=== PATIENT | female | born 1995 | race African-American/Black ===

== ENCOUNTER 2019-04-29 16:33 | Inpatient (IN) | payer MEDICAID ==
[~2019-04-29] VITALS: Ht 182.9 cm; Wt 76.2 kg
[2019-04-29] MEDS ORDERED: TRIL8 PO (19:26)
[2019-04-29] MEDS ORDERED: BENZ1TAB10 PO (19:26)
[2019-04-29] MEDS ORDERED: OLAN5TAB2 PO (19:26)
[2019-04-29] MEDS ORDERED: HALOPERIDOL 5 MG TABLET PO PRN (19:45)
[2019-04-29] MEDS ORDERED: ZOLPIDEM TARTRATE 10 MG TABLET PO PRN (19:45)
[2019-04-29] MEDS ORDERED: LORazepam 2 MG TABLET PO PRN (19:45)
[2019-04-29] MEDS ORDERED: INFLUENZA VIRUS VACCINE QVS 2019-20 (3YR+)/PF 60 MCG/0.5 ML SYRINGE IM ONE (20:45)
[2019-04-29 22:38] VITALS: BP 105/61
[2019-04-30 00:08] VITALS: BP 109/62
[2019-04-30] MEDS ORDERED: BENZOCAINE/MENTHOL LOZENGE MM PRN (07:00)
[2019-04-30] MEDS ORDERED: IBUPROFEN 600 MG TABLET PO PRN (07:00)
[2019-04-30] MEDS ORDERED: BACITRACIN 28.4 GM OINTMENT TP PRN (07:00)
[2019-04-30] MEDS ORDERED: PETROLATUM,WHITE 28 GM JELLY TP PRN (07:00)
[2019-04-30] MEDS ORDERED: CloNIDine HCL 0.1 MG TABLET PO PRN (07:00)
[2019-04-30] MEDS ORDERED: DOCUSATE SODIUM 100 MG CAPSULE PO PRN (07:00)
[2019-04-30] MEDS ORDERED: MAG HYDROX/AL HYDROX/SIMETH ES 30 ML SUSPENSION UDCUP PO PRN (07:00)
[2019-04-30] MEDS ORDERED: ALBUTEROL SULFATE HFA 90 MCG/PUFF 8 GM INHALER IH PRN (07:00)
[2019-04-30] MEDS ORDERED: LOPERAMIDE HCL 2 MG CAPSULE PO PRN (07:00)
[2019-04-30] MEDS ORDERED: OMEPRAZOLE 20 MG CAPSULE PO PRN (07:00)
[2019-04-30] MEDS ORDERED: MAGNESIUM HYDROXIDE SUSPENSION 30 ML UDCUP PO PRN (07:00)
[2019-04-30] MEDS ORDERED: ONDANSETRON HCL 4 MG TABLET PO PRN (07:00)
[2019-04-30] MEDS ORDERED: ACETAMINOPHEN 325 MG TABLET PO PRN (07:00)
[2019-04-30 08:16] VITALS: BP 100/61
[2019-04-30 08:23] LABS: BASOPHILS % (AUTO) 0.4 % (0.0-2.0); EOSINOPHILS % (AUTO) 2.7 % (1.0-6.0); HEMATOCRIT 33.1 % (36-46); HEMOGLOBIN 11.3 g/dL (12.0-16.0); LYMPHOCYTES # (AUTO) 1.3 K/uL (1.0-4.8); LYMPHOCYTES % (AUTO) 52.7 % (22.0-44.0); MEAN CORPUSCULAR HEMOGLOBIN 30.4 pg (26.0-34.0); MEAN CORPUSCULAR HGB CONC 34.2 G/dL (31.0-37.0); MEAN CORPUSCULAR VOLUME 89 fL (80-100); MONOCYTES # (AUTO) 0.2 K/uL (0.1-1.0); MONOCYTES % (AUTO) 7.6 % (2.0-9.0); NEUTROPHILS # (AUTO) 0.9 K/uL (1.8-7.7); NEUTROPHILS % (AUTO) 36.6 % (40.0-70.0); PLATELET COUNT (AUTO) 200 K/uL (150-450); RED BLOOD CELL COUNT(AUTO) 3.71 MIL/uL (4.00-5.20); RED CELL DISTRIBUTION WIDTH 14.1 % (11.5-14.5)
[2019-04-30 08:43] LABS: ALANINE AMINOTRANSFERASE 19 U/L (12-78); ALBUMIN 3.3 g/dL (3.4-5.0); ALKALINE PHOSPHATASE 77 U/L (46-116); ANION GAP 6 mmol/L (8-16); ASPARTATE AMINOTRANSFERASE 13 U/L (15-37); BILIRUBIN,TOTAL 0.1 mg/dL (0.1-1.0); CALCIUM, TOTAL 8.5 mg/dL (8.8-10.5); CARBON DIOXIDE 27 mmol/L (22-29); CHLORIDE 107 mmol/L (98-107); CHOL/HDL RATIO 2.9 (3.9-5.7); CHOLESTEROL 144 mg/dL (131-200); CREATININE 1.04 mg/dL (0.60-1.30); FREE T4 (FREE THYROXINE) 0.77 ng/dL (0.76-1.46); GLOMERULAR FILTR. RATE CALC > 60 mL/min (>60); GLUCOSE,RANDOM 78 mg/dL (70-110); HCG,QUANTITATIVE < 1 mIU/mL (0-6); HDL CHOLESTEROL 49 mg/dL (40-60); LDL CHOL (CALC.) 84 mg/dL (0-130); POTASSIUM 4.1 mmol/L (3.5-5.1); SODIUM SERUM 140 mmol/L (136-145); THYROID STIMULATING HORMONE 0.61 uIU/mL (0.36-3.74); TOTAL PROTEIN, SERUM 6.3 g/dL (6.4-8.2); TRIGLYCERIDES 57 mg/dL (15-150); UREA NITROGEN, BLOOD 8 mg/dL (7-18)
[2019-04-30 08:45] LABS: HEMOGLOBIN A1C 5.2 % (4.5-6.2)
[2019-04-30 16:08] VITALS: BP 117/60
[2019-05-01 00:59] VITALS: BP 107/64
[2019-05-01 10:18] VITALS: BP 102/63
[2019-05-01 16:20] VITALS: BP 105/60
[2019-05-01] MEDS: OLANZapine 10 MG TABLET PO SCH (21:20)
[2019-05-02 01:01] VITALS: BP 102/62
[2019-05-02 08:22] LABS: % IRON SATURATION 25.7 % (22-44)
[2019-05-02 08:54] VITALS: BP 108/60
[2019-05-02 16:16] VITALS: BP 120/69
[2019-05-02] MEDS: OLANZapine 10 MG TABLET PO SCH (20:02)
[2019-05-03 06:24] VITALS: BP 110/80
[2019-05-03 08:48] VITALS: BP 97/56
[2019-05-03 16:05] VITALS: BP 113/68
[2019-05-03] MEDS: OLANZapine 10 MG TABLET PO SCH (20:16)
[2019-05-04 00:47] VITALS: BP 108/68
[2019-05-04 08:30] LABS: HEMATOCRIT 34.4 % (36-46); HEMOGLOBIN 11.6 g/dL (12.0-16.0); MEAN CORPUSCULAR HGB CONC 33.7 G/dL (31.0-37.0); MEAN CORPUSCULAR VOLUME 89 fL (80-100); PLATELET COUNT (AUTO) 208 K/uL (150-450); RED BLOOD CELL COUNT(AUTO) 3.87 MIL/uL (4.00-5.20); RED CELL DISTRIBUTION WIDTH 13.6 % (11.5-14.5)
[2019-05-04 08:41] VITALS: BP 102/63
[2019-05-04 08:54] LABS: ALANINE AMINOTRANSFERASE 25 U/L (12-78); ALBUMIN 3.3 g/dL (3.4-5.0); ALKALINE PHOSPHATASE 72 U/L (46-116); ANION GAP 4 mmol/L (8-16); ASPARTATE AMINOTRANSFERASE 15 U/L (15-37); BILIRUBIN,TOTAL 0.2 mg/dL (0.1-1.0); CALCIUM, TOTAL 8.7 mg/dL (8.8-10.5); CARBON DIOXIDE 29 mmol/L (22-29); CHLORIDE 107 mmol/L (98-107); CREATININE 0.82 mg/dL (0.60-1.30); GLOMERULAR FILTR. RATE CALC > 60 mL/min (>60); GLUCOSE,RANDOM 81 mg/dL (70-110); PHOSPHORUS 3.5 mg/dL (2.5-4.9); POTASSIUM 4.1 mmol/L (3.5-5.1); SODIUM SERUM 140 mmol/L (136-145); TOTAL PROTEIN, SERUM 6.5 g/dL (6.4-8.2); UREA NITROGEN, BLOOD 7 mg/dL (7-18)
[2019-05-04 09:45] LABS: BAND NEUTROPHILS % (MANUAL) 0 % (0-5)
[2019-05-04 09:46] LABS: LYMPHOCYTES % (MANUAL) 63 % (22-44); MONOCYTES % (MANUAL) 4 % (2-9); SEGMENTED NEUTROPHILS % 33 % (40-70)
[2019-05-04 16:09] VITALS: BP 113/69
[2019-05-04] MEDS: OLANZapine 10 MG TABLET PO SCH (20:32)
[2019-05-05 06:29] VITALS: BP 105/63
[2019-05-05 08:24] VITALS: BP 104/62
[2019-05-05 16:20] VITALS: BP 106/67
[2019-05-05] MEDS: OLANZapine 10 MG TABLET PO SCH (20:07)
[2019-05-06 06:21] VITALS: BP 103/69
[2019-05-06 08:12] VITALS: BP 101/65
[2019-05-06 16:12] VITALS: BP 103/68
[2019-05-06] MEDS: OLANZapine 10 MG TABLET PO SCH (20:13)
[2019-05-07 06:38] VITALS: BP 94/51
[2019-05-07 08:57] VITALS: BP 102/66
[2019-05-07] MEDS ORDERED: OLAN10TA3 PO (12:19)
== END 2019-05-07 13:25 | disposition home or self-care (01) | DRG 750 ==
LOC: B2S 19:36
PROVIDERS: ADMIT Psychiatry & Neurology Psychiatry; ATTEND Psychiatry & Neurology Psychiatry
DX: F25.9 Schizoaffective disorder, unspecified (principal); D64.9 Anemia, unspecified; F41.9 Anxiety disorder, unspecified; G47.00 Insomnia, unspecified; K59.00 Constipation, unspecified
CPT/HCPCS: 83036; 83540; 83550; 83735; 84100; 84439; 84443; 87081; 90686